=== PATIENT | male | born 2000 | race Caucasian/White ===

== ENCOUNTER 2018-04-22 21:03 | Emergency (ER) | payer OTHER ==
[2018-04-22] MEDS ORDERED: ONDANSETRON *ODT* 4 MG TABLET SL ONE (21:22)
[2018-04-22 21:24] VITALS: BP 136/50; PULSE 95; TEMP 100.6; BMI 24.8
--- NOTE | 2018-04-22 21:29 | PDOC ---
Rapid Medical Evaluation Chief Complaint: Cold Symptoms Time Seen by Provider: 04/22/18 21:21 Medical Evaluation: 04/22/18 21:22 17 year old male with nausea, vomiting, cough chest congestion x 3 days. patient reports sore throat today. denies abdominal pain urinary symptoms Pe: + pharyngeal erythema, coarse breath sounds a: viral syndrome P: rapid strep influenza zofran chest xray patient to the ER for further management of care. Discharge Disposition - Diagnosis Flu-like symptoms - Referrals - Patient Instructions - Post Discharge Activity
[2018-04-22] MEDS ORDERED: ONDANSETRON *ODT* 4 MG TABLET ONE (21:32)
--- NOTE | 2018-04-22 21:50 | PDOC ---
*Physical Exam - Vital Signs Last Vital Signs Temp Pulse Resp BP Pulse Ox 100.6 F H 95 H 18 136/50 L 100 04/22/18 21:21 04/22/18 21:21 04/22/18 21:21 04/22/18 21:21 04/22/18 21:21 ED Treatment Course - Medications Given in the ED: ED Medications Discontinued Medications Generic Name Dose Route Start Last Admin Trade Name Barbie PRN Reason Stop Dose Admin Ondansetron HCl 4 mg 04/22/18 21:22 04/22/18 21:33 Zofran Odt - SL 04/22/18 21:23 4 mg ONCE ONE Administration Medical Decision Making - Medical Decision Making 04/22/18 21:49 Patient seen by the advanced practice provider under my direct supervision. Ancillary testing reviewed as necessary. I agree with plan as outlined by the advanced practice provider. *DC/Admit/Observation/Transfer Diagnosis at time of Disposition: Viral URI - Discharge Dispostion Disposition: HOME Condition at time of disposition: Stable - Referrals - Patient Instructions Printed Discharge Instructions: DI for Viral Upper Respiratory Infection -- Adult Additional Instructions: Thank you for choosing [facility]. It was a pleasure taking care of you. Take Tylenol or Motrin as needed for fever Stay hydrated - drink Pedialyte; get at least 2 L of water daily If your throat culture is positive, you will get a call back Follow-up with your doctor in 2-3 days. Return to the Emergency Department if your symptoms worsen or persist or have other concerning symptoms. - Post Discharge Activity
[2018-04-22] MEDS ORDERED: ACETAMINOPHEN 325 MG TABLET (FP) PO ONE (21:57)
[2018-04-22] MEDS ORDERED: ACETAMINOPHEN 325 MG TABLET (FP) ONE (21:58)
--- NOTE | 2018-04-22 22:17 | PDOC ---
History of Present Illness - General Chief Complaint: Cold Symptoms Stated Complaint: fever nausea Time Seen by Provider: 04/22/18 21:21 History Source: Patient Exam Limitations: No Limitations Past History - Past Medical History Allergies/Adverse Reactions: Allergies Allergy/AdvReac Type Severity Reaction Status Date / Time amoxicillin Allergy Mild Rash Verified 04/22/18 21:24 COPD: No - Suicide/Smoking/Psychosocial Hx Smoking History: Never smoked Have you smoked in the past 12 months: No Information on smoking cessation initiated: No Hx Alcohol Use: No Drug/Substance Use Hx: No *Physical Exam - Vital Signs Last Vital Signs Temp Pulse Resp BP Pulse Ox 100.6 F H 95 H 18 136/50 L 100 04/22/18 21:21 04/22/18 21:21 04/22/18 21:21 04/22/18 21:21 04/22/18 21:21 - Physical Exam General Appearance: No: Apparent Distress HEENT: positive: Pharyngeal Erythema. negative: Muffled/Hoarse voice, Tonsillar Exudate, Tonsillar Erythema, Nasal Congestion, Rhinorrhea, Sinus Tenderness Respiratory/Chest: positive: Lungs Clear, Normal Breath Sounds. negative: Respiratory Distress Cardiovascular: positive: Regular Rhythm, Tachycardia. negative: Murmur Gastrointestinal/Abdominal: positive: Normal Bowel Sounds, Soft. negative: Tender, Distended, Guarding, Rebound Integumentary: positive: Normal Color Neurologic: positive: Alert, Normal Mood/Affect Moderate Sedation - Procedure Monitoring Vital Signs: Procedure Monitoring Vital Signs Temperature 100.6 F H 04/22/18 21:21 Pulse Rate 95 H 04/22/18 21:21 Respiratory Rate 18 04/22/18 21:21 Blood Pressure 136/50 L 04/22/18 21:21 O2 Sat by Pulse Oximetry (%) 100 04/22/18 21:21 ED Treatment Course - Medications Given in the ED: ED Medications Discontinued Medications Generic Name Dose Route Start Last Admin Trade Name Freq PRN Reason Stop Dose Admin Acetaminophen 975 mg 04/22/18 21:57 04/22/18 22:00 Tylenol - PO 04/22/18 21:58 975 mg ONCE ONE Administration Ondansetron HCl 4 mg 04/22/18 21:22 04/22/18 21:33 Zofran Odt - SL 04/22/18 21:23 4 mg ONCE ONE Administration Medical Decision Making - Medical Decision Making 17 y/o M with no sig pmh presents with NBNB emesis since 2 days ago and fever which started last night. Also mentions having sore throat, dry cough, chest congestion. States vomiting stopped around 2 PM today and has been able to keep down fluids. Mentions mild abdominal discomfort, but denies pain. Took Motrin around 5 PM today. Denies sob, cp, diarrhea, sick contacts. Flu and rapid strep negative Patient has been tolerating PO here CXR wet read negative Repeat BP: 131/75, HR 99 Likely viral syndrome Patient appears well Stable for dc 04/22/18 22:15 *DC/Admit/Observation/Transfer Diagnosis at time of Disposition: Viral URI - Discharge Dispostion Disposition: HOME Condition at time of disposition: Stable Decision to Admit order: No - Referrals - Patient Instructions Printed Discharge Instructions: DI for Viral Upper Respiratory Infection -- Adult Additional Instructions: Thank you for choosing [facility]. It was a pleasure taking care of you. Take Tylenol or Motrin as needed for fever Stay hydrated - drink Pedialyte; get at least 2 L of water daily If your throat culture is positive, you will get a call back Follow-up with your doctor in 2-3 days. Return to the Emergency Department if your symptoms worsen or persist or have other concerning symptoms. - Post Discharge Activity
== END 2018-04-22 22:37 | disposition home or self-care (01) ==
LOC: JER 21:03
DX: J06.9 Acute upper respiratory infection, unspecified (principal); B97.89 Other viral agents as the cause of diseases classified elsewhere
CPT/HCPCS: 71046-TC-FY; 87070; 87804; 87880; 99282-25; Q0162

== ENCOUNTER 2022-10-29 21:57 | Emergency (ER) | payer OTHER ==
[2022-10-29 22:04] VITALS: BP 122/81; PULSE 71; RESP 16; TEMP 98.1; BMI 25.1
== END 2022-10-30 00:27 | disposition home or self-care (01) ==
LOC: JER 21:57 → JERFT 21:57 → JER 10-30 00:27
DX: S86.911A Strain of unspecified muscle(s) and tendon(s) at lower leg level, right leg, initial encounter (principal); M25.561 Pain in right knee; X50.1XXA Overexertion from prolonged static or awkward postures, initial encounter; Y93.67 Activity, basketball
CPT/HCPCS: 73562-TC-RT-FY; 73590-TC-RT-FY; 99283-25